=== PATIENT | male | born 1960 | race Caucasian/White ===

== ENCOUNTER 2017-03-28 09:01 | Outpatient (CLI) | payer BC ==
[2017-03-28 11:31] LABS: ALT (SGPT) 22 U/L (8-55); AST (SGOT) 14 U/L (5-34); Albumin 4.4 g/dL (3.5-5.0); Alkaline Phosphatase 61 U/L (40-150); Anion Gap 14 mmol/L (10-20); BUN (Urea Nitrogen) 18 mg/dL (8.4-25.7); Bilirubin, Total 0.4 mg/dL (0.2-1.2); Calc. Creatinine Clearance 0 mL/min (70-130); Calcium 9.3 mg/dL (7.8-10.44); Carbon Dioxide 24 mmol/L (22-29); Cardiac Risk 3.3 (Less than 4.5); Chloride 109 mmol/L (98-107); Cholesterol 160 mg/dl (< 200 Desired); Estimated GFR-MDRD 73; Globulin 2.9 g/dL (2.4-3.5); Glucose 103 mg/dL (70-105); HDL Cholesterol 48 mg/dL (>60 Neg Risk); LDL Cholesterol, Calculated 94 mg/dL; Potassium 4.7 mmol/L (3.5-5.1); Protein, Total 7.3 g/dL (6.0-8.3); Sodium 142 mmol/L (136-145); Triglycerides 91 mg/dL (Less than 150)
[2017-03-28 12:17] LABS: #Basophils 0.1 thou/uL (0.0-0.2); #Eosinphils 0.4 thou/uL (0.0-0.7); #Lymphocytes 2.9 thou/uL (1.20-3.40); #Monocytes 0.8 thou/uL (0.11-0.59); #Neutrophils 6.9 thou/uL (1.40-6.50); %Basophils 1.1 % (0.0-1.0); %Eosinophils 3.5 % (0.0-10.0); %Lymphocytes 26.1 % (21.0-51.0); %Monocytes 7.4 % (0.0-10.0); %Neutrophils 61.9 % (42.0-75.0); Hemoglobin 15.6 g/dL (14.0-18.0); Mean Corpuscular HGB CONC 35.2 g/dL (32.0-36.0); Mean Corpuscular Hemoglobin 31.7 pg (27.0-31.0); Mean Corpuscular Volume 90.2 fl (80.0-94.0); Mean Platelet Volume 7.4 fL (7.4-10.4); Platelet Count 274 thou/uL (130-400); RBC Distribution Width 12.6 % (11.5-14.5); Red Blood Cell (RBC) Count 4.93 mill/uL (4.70-6.10); White Blood Cell (WBC) Count 11.2 thou/uL (4.8-10.8)
== END 2017-03-28 09:02 ==
LOC: HPCALD 09:01
PROVIDERS: ATTEND Family Medicine
DX: Z12.5 Encounter for screening for malignant neoplasm of prostate (principal); Z13.6 Encounter for screening for cardiovascular disorders; I10 Essential (primary) hypertension
CPT/HCPCS: 36415; 80053; 80061; 85025; G0103

== ENCOUNTER 2023-02-17 09:04 | Outpatient (CLI) | payer BC | END 2023-02-17 09:05 | disposition home or self-care (01) | LOC: BURRAD 09:04 | PROVIDERS: ATTEND Family Medicine | DX: M47.26 Other spondylosis with radiculopathy, lumbar region (principal) | CPT/HCPCS: 72110 ==